=== PATIENT | female | born 1995 ===

== ENCOUNTER 2017-12-19 11:47 | Emergency (ER) | payer MEDICAID ==
[2017-12-19 11:55] VITALS: TEMP 98.1
--- NOTE | 2017-12-19 12:05 | C.PDOC ---
Time Seen by Provider: 12/19/17 11:57 Chief Complaint (Nursing): Weakness/Neurological Deficit Past Medical History Vital Signs: Last Vital Signs Temp 98.1 F 12/19/17 11:52 Pulse 40 L 12/19/17 11:52 Resp 16 12/19/17 11:52 BP 69/36 L 12/19/17 11:52 Pulse Ox 98 12/19/17 11:52 - Social History Hx Alcohol Use: No Hx Substance Use: No - Immunization History Hx Tetanus Toxoid Vaccination: No Hx Influenza Vaccination: No Hx Pneumococcal Vaccination: No ED Course And Treatment O2 Sat by Pulse Oximetry: 98 Disposition - Disposition
--- NOTE | 2017-12-19 12:14 | C.PDOC ---
History Of Present Illness 22 y/o female, [employer] employee, presents to ED for evaluation of near-syncope prior to arrival while working. Pt states she felt lightheaded, sweaty, and headache 1 hour ago prior to event and had witnessed near-syncope event just prior to arrival. Bystander RN checked heart rate and was found to be 41 and systolic blood pressure of 69 and appeared pale. Pt states she previously had similar episode with associated headache before the event. She denies history of frequent headache, states "she can't remember the last time she had it". Pt is currently asymptomatic. LMP: 12/08/17. Time Seen by Provider: 12/19/17 11:57 Chief Complaint (Nursing): Weakness/Neurological Deficit History Per: Patient History/Exam Limitations: no limitations Onset/Duration Of Symptoms: Days Current Symptoms Are (Timing): Still Present Recent travel outside of the [place]: No Additional History Per: Patient Past Medical History Reviewed: Historical Data, Nursing Documentation, Vital Signs Vital Signs: Last Vital Signs Temp 98.1 F 12/19/17 11:52 Pulse 40 L 12/19/17 11:52 Resp 16 12/19/17 11:52 BP 69/36 L 12/19/17 11:52 Pulse Ox 98 12/19/17 11:52 Family History: States: Unknown Family Hx - Social History Hx Alcohol Use: No Hx Substance Use: No - Immunization History Hx Tetanus Toxoid Vaccination: No Hx Influenza Vaccination: No Hx Pneumococcal Vaccination: No Review Of Systems Except As Marked, All Systems Reviewed And Found Negative. Constitutional: Negative for: Fever, Chills Cardiovascular: Negative for: Chest Pain, Palpitations, Light Headedness Respiratory: Negative for: Shortness of Breath Neurological: Positive for: Other (near-syncope). Negative for: Weakness, Numbness, Headache, Dizziness Physical Exam - Physical Exam Appears: Non-toxic, No Acute Distress Skin: No Warm (cool), Diaphoretic, Pale Head: Atraumatic, Normacephalic Eye(s): bilateral: Normal Inspection, Other (no conjunctival pallor) Oral Mucosa: Moist Neck: Normal ROM, Supple Cardiovascular: Rhythm Regular, No Murmur Respiratory: Normal Breath Sounds, No Rales, No Rhonchi, No Wheezing Gastrointestinal/Abdominal: Soft, No Tenderness Extremity: Normal ROM, No Deformity Neurological/Psych: Oriented x3, Normal Speech, Other (neuro intact) ED Course And Treatment - Laboratory Results Result Diagrams: 12/19/17 12:30 12/19/17 12:30 ECG: Interpreted By Me ECG Rhythm: Sinus Bradycardia Interpretation Of ECG: T wave inversions in lead III, and V3. Normal intervals. Rate From EC (bpm) O2 Sat by Pulse Oximetry: 98 (RA) Pulse Ox Interpretation: Normal - Radiology CXR: Interpreted by Me, Viewed By Me CXR Interpretation: Yes: No Acute Disease Reevaluation Time: 13:46 Reassessment Condition: Improved (PT REQUESTING DC, DOES NOT WISH WORK EXCUSE.) Medical Decision Making Medical Decision Making: Plan: Blood work Urinalysis Head CT CXR EKG IV fluids On re-eval, pt is improved, she is using her cell phone. Pt is asymptomatic. Pending head CT. Disposition Counseled Patient/Family Regarding: Studies Performed, Diagnosis, Need For Followup - Disposition Referrals: YOUR,PMD [Other] Disposition: HOME/ ROUTINE Disposition Time: 13:45 Condition: IMPROVED Instructions: Vasovagal Response (DC) Forms: [facility] (Kazakh), Work Excuse - Clinical Impression Clinical Impression: Vasovagal near syncope, Headache - Scribe Statement The provider has reviewed the documentation as recorded by the Scribe KP All medical record entries made by the Scribe were at my direction and personally dictated by me. I have reviewed the chart and agree that the record accurately reflects my personal performance of the history, physical exam, medical decision making, and the department course for this patient. I have also personally directed, reviewed, and agree with the discharge instructions and disposition.
[2017-12-19 12:34] LABS: BASO % 0.7 % (0.0-2.0); EOS # 0.1 K/uL (0.0-0.7); EOS % 1.4 % (0.0-4.0); HEMOGLOBIN 13.3 g/dL (11.0-16.0); LYMPH # 2.9 K/uL (1.0-4.3); MEAN CELL VOLUME 84.9 fL (81.0-99.0); MEAN CORPUSCULAR HEMOGLOBIN 28.1 pg (27.0-31.0); MEAN CORPUSCULAR HGB CONC 33.1 g/dL (33.0-37.0); MEAN PLATELET VOLUME 9.3 fL (7.2-11.7); MONO # 0.3 K/uL (0.0-0.8); MONO % 6.7 % (0.0-10.0); NEUT # 1.5 K/uL (1.8-7.0); NEUT % 31.2 % (50.0-75.0); NRBC % 0.1 % (0.0-2.0); RBC 4.74 Mil/uL (3.80-5.20); RED CELL DISTRIBUTION WIDTH 14.5 % (11.5-14.5); WHITE BLOOD COUNT 4.9 K/uL (4.8-10.8)
[2017-12-19 12:48] LABS: BLOOD UREA NITROGEN 9 mg/dL (7-17); CALCIUM 9.9 mg/dl (8.6-10.4); GFR NON-AFRICAN AMERICAN > 60
[2017-12-19 12:49] LABS: SQUAMOUS EPITHIAL 4 /hpf (0-5); URINE BACTERIA MOD (<OCC); URINE BILIRUBIN NEGATIVE (NEGATIVE); URINE BLOOD NEGATIVE (NEGATIVE); URINE CLARITY Clear (Clear); URINE COLOR Straw (YELLOW); URINE GLUCOSE (UA) NORMAL (Normal); URINE LEUKOCYTE ESTERASE NEG Leu/uL (Negative); URINE PROTEIN NEGATIVE (NEGATIVE); URINE UROBILINOGEN NORMAL mg/dL (0.2-1.0)
--- NOTE | 2017-12-19 13:29 | CT ---
Date of service: 12/19/2017 PROCEDURE: CT HEAD WITHOUT CONTRAST. HISTORY: NEAR SYNCOPE COMPARISON: None available. TECHNIQUE: Axial computed tomography images were obtained through the head/brain without intravenous contrast. Radiation dose: Total exam DLP = 985.56 mGy-cm. This CT exam was performed using one or more of the following dose reduction techniques: Automated exposure control, adjustment of the mA and/or kV according to patient size, and/or use of iterative reconstruction technique. FINDINGS: HEMORRHAGE: No intracranial hemorrhage. BRAIN: Normal shirley-white matter differentiation and density are appreciated throughout the cerebrum and cerebellum with the brainstem appearing unremarkable as well. There is no mass effect. There is no suspicious extra-axial fluid collection and the midline brain anatomy appears diffusely unremarkable. VENTRICLES: Unremarkable. No hydrocephalus. CALVARIUM: Unremarkable. PARANASAL SINUSES: Unremarkable as visualized. No significant inflammatory changes. MASTOID AIR CELLS: Unremarkable as visualized. No inflammatory changes. OTHER FINDINGS: None. IMPRESSION: Unremarkable CT of the Head.
[2017-12-19 13:39] VITALS: BP 91/54; PULSE 61; RESP 15; O2SAT 98
--- NOTE | 2017-12-19 17:09 | RAD ---
Date of service: 12/19/2017 PROCEDURE: CHEST RADIOGRAPH, 1 VIEW HISTORY: NEAR SYNCOPE COMPARISON: None available. FINDINGS: LUNGS: No interval pulmonary disease appreciated bilaterally. PLEURA: No pneumothorax or pleural fluid seen. CARDIOVASCULAR: Normal. OSSEOUS STRUCTURES: No significant abnormalities. VISUALIZED UPPER ABDOMEN: Normal. OTHER FINDINGS: None. IMPRESSION: No acute cardiopulmonary disease appreciated.
--- NOTE | 2017-12-20 12:50 | CARD ---
APPROVED REPORT Date of service: 12/19/2017 EKG Measurement Heart [id number] <Conclusion> Sinus bradycardia Septal infarct, age undetermined Abnormal ECG
== END 2017-12-19 13:54 | disposition home or self-care (01) ==
LOC: C.ER 11:47
DX: R55 Syncope and collapse (principal); R51 Headache
CPT/HCPCS: 70450; 71045; 80048; 81001; 82948; 85025; 93005; 99285; J7030